=== PATIENT | female | born 1965 | race Caucasian/White ===

== ENCOUNTER 2019-04-23 14:24 | Emergency (ER) | payer OTHER ==
[~2019-04-23] VITALS: Ht 154.9 cm; Wt 78.9 kg
[2019-04-23 14:42] VITALS: BP 129/79
--- NOTE | 2019-04-23 15:00 | NUR ---
BIB SELF. AAO X4 C/O DIARRHEA, LT SIDED ABD PAIN, AND BLOATING AFTER EATING X1 WEEK. RECIEVED METRONIDAZOLE, CIPROFLAXACIN, AND NORCO FROM CLINIC ON 04/21/19. PT DENIES FEVER, N/V, SOB. PT ABDOMEN ROUND, SOFT, NON TENDER TO TOUCH. HOB UP. BED SIDE RAILS UP X1. ON LOW BED POSITION, LOCKED. ER TO EVALUATE PT
--- NOTE | 2019-04-23 15:02 | NUR ---
DR WINTERS AT BEDSIDE FOR PT EVALUATION
[2019-04-23 15:35] LABS: BASOPHILS # (AUTO) 0.1 K/uL (0.00-0.22); BASOPHILS % (AUTO) 0.7 % (0.0-2.0); EOSINOPHILS # (AUTO) 0.2 K/uL (0-0.4); EOSINOPHILS % (AUTO) 1.9 % (0.0-4.0); HEMATOCRIT 42.5 % (36-48); HEMOGLOBIN 14.2 g/dL (12.0-16.0); LYMPHOCYTES % (AUTO) 20.9 % (20.5-51.1); MEAN CORPUSCULAR HEMOGLOBIN 31 pg (27-31); MEAN CORPUSCULAR HGB CONC 34 g/dL (33-37); MEAN CORPUSCULAR VOLUME 91.7 fL (80-94); MONOCYTES # (AUTO) 0.7 K/uL (0.8-1.0); MONOCYTES % (AUTO) 7.1 % (1.7-9.3); NEUTROPHILS # (AUTO) 6.7 K/uL (1.8-7.7); NEUTROPHILS % (AUTO) 69.4 % (42.2-75.2); PLATELET COUNT (AUTO) 294 K/uL (140-450); RED BLOOD CELL COUNT(AUTO) 4.63 MIL/uL (4.20-5.40); RED CELL DISTRIBUTION WIDTH 13.8 % (11.6-13.7); WHITE BLOOD COUNT (AUTO) 9.6 K/uL (4.8-10.8)
[2019-04-23 15:35] LABS: APPEARANCE,URINE HAZY (CLEAR); BILIRUBIN,URINE NEGATIVE (NEGATIVE); BLOOD, URINE NEGATIVE (NEGATIVE); COLOR,URINE YELLOW (YELLOW); LEUKOCYTE ESTERASE ,URINE NEGATIVE (NEGATIVE); NITRITE, URINE NEGATIVE (NEGATIVE); UGLUCOSE NEGATIVE (NEGATIVE)
--- NOTE | 2019-04-23 15:40 | NUR ---
PT TAKEN TO CT VIA WHEEL CHAIR BY TREE FELLER
[2019-04-23 16:15] LABS: ALBUMIN 3.2 g/dL (3.4-5.0); ANION GAP 13.7 (8-16); CARBON DIOXIDE 26.2 mmol/L (21-32); CREATININE 0.7 mg/dL (0.6-1.3); POTASSIUM 3.9 mmol/L (3.5-5.1); TOTAL BILIRUBIN 0.4 mg/dL (0.0-1.0)
[2019-04-23] MEDS ORDERED: KETOROLAC 60 MG/2 ML VIAL IM ONE (16:35)
[2019-04-23 17:01] VITALS: BP 125/75
--- NOTE | 2019-04-23 17:01 | NUR ---
Patient discharged with v/s stable. Written and verbal after care instructions given and explained. Patient verbalized understanding. Ambulatory with steady gait. All questions addressed prior to discharge. Advised to follow up with PMD.
== END 2019-04-23 17:01 | disposition home or self-care (01) ==
LOC: MED 14:24
DX: K57.92 Diverticulitis of intestine, part unspecified, without perforation or abscess without bleeding (principal); F17.200 Nicotine dependence, unspecified, uncomplicated; Z90.49 Acquired absence of other specified parts of digestive tract; Z98.890 Other specified postprocedural states
CPT/HCPCS: 36415; 74176; 80053; 81003; 81025; 83690; 85025; 96372; 99284; J1885

== ENCOUNTER 2019-05-18 14:18 | Emergency (ER) | payer OTHER ==
[~2019-05-18] VITALS: Ht 154.9 cm; Wt 77.1 kg
[2019-05-18 15:00] VITALS: BP 134/77
--- NOTE | 2019-05-18 15:04 | NUR ---
back to er lobby with ; continue to wait for available room for md boland
--- NOTE | 2019-05-18 15:58 | NUR ---
Patient walker to chair A
--- NOTE | 2019-05-18 16:03 | NUR ---
SELF INJURED LEFT 2ND DIGIT TIP WHILE CUTTING FOOD YESTERDAY UNKNOWN LAST TETANUS SHOT
[2019-05-18] MEDS ORDERED: NEOMYCIN/POLYMYXIN/BACITRACIN 0.9 GM/1 PKT TP ONE (16:20)
[2019-05-18 16:37] VITALS: BP 134/77
== END 2019-05-18 16:38 | disposition home or self-care (01) ==
LOC: MED 14:18
DX: S61.201A Unspecified open wound of left index finger without damage to nail, initial encounter (principal); F17.210 Nicotine dependence, cigarettes, uncomplicated; F41.9 Anxiety disorder, unspecified; Z90.49 Acquired absence of other specified parts of digestive tract; W26.0XXA Contact with knife, initial encounter; Y93.89 Activity, other specified; Y92.89 Other specified places as the place of occurrence of the external cause; Y99.8 Other external cause status
CPT/HCPCS: 90471; 90715; 99283